=== PATIENT | female | born 1990 | race Two or more races ===

== ENCOUNTER 2019-03-30 13:44 | Observation (INO) | payer SELFPAY ==
[2019-03-30 14:46] LABS: AMNIO PT NEGATIVE
[2019-03-30] MEDS ORDERED: IV RINGERS,LACTATED 1000ML 1,000 ML IV PRN (15:30)
[2019-03-30] MEDS ORDERED: hydrOXYzine 25 MG TABLET PO PRN (15:30)
[2019-03-30 15:55] LABS: BILIRUBIN,URINE NEGATIVE (NEG); CLARITY,URINE CLEAR; COLOR,URINE YELLOW; NITRITE,URINE POSITIVE (NEG); PROTEIN,URINE NEGATIVE (NEG-TRACE); UROBILINOGEN,URINE 0.2 mg/dL (0.2 mg/dL)
[2019-03-30 16:08] LABS: BACTERIA,URINE MANY /HPF (0-FEW); RBC,URINE 0 /HPF (0-2); SQUAMOUS EPITHELIAL CELL,UR OCC /LPF
== END 2019-03-30 16:20 | disposition home or self-care (01) ==
LOC: 3 SO LND 13:44
PROVIDERS: ADMIT Specialist; ATTEND Specialist
DX: O62.9 Abnormality of forces of labor, unspecified (principal); Z3A.35 35 weeks gestation of pregnancy
CPT/HCPCS: 36415; 81001; 84112; 87086; 87186; G0378; G0379

== ENCOUNTER 2019-05-31 17:11 | Emergency (ER) | payer SELFPAY ==
[~2019-05-31 17:11] MED LIST: PREN-6 PO
[2019-05-31] MEDS ORDERED: DICYCLOMINE HCL 10 MG CAPSULE PO ONE (19:00)
[2019-05-31] MEDS ORDERED: ONDANSETRON PF 4 MG/2 ML VIAL. IVP ONE (19:00)
[2019-05-31] MEDS ORDERED: IV NORMAL SALINE 1000ML BAG 1,000 ML IV ONE (19:00)
[2019-05-31 19:07] LABS: BILIRUBIN,URINE NEGATIVE (NEG); CLARITY,URINE CLEAR; COLOR,URINE YELLOW; NITRITE,URINE NEGATIVE (NEG); PH,URINE 5.5; PROTEIN,URINE NEGATIVE (NEG-TRACE); UROBILINOGEN,URINE 0.2 mg/dL (0.2 mg/dL)
[2019-05-31 19:15] LABS: SQUAMOUS EPITHELIAL CELL,UR MOD /LPF
[2019-05-31 19:16] LABS: BASO % 0 % (0-3); EOS % 0 % (0-3); HEMATOCRIT 33.2 % (36.0-47.0); HEMOGLOBIN 10.7 g/dL (12.0-15.5); LYMPH # 1.2 x10^3/uL (1.0-4.8); LYMPH % 14 % (24-48); MEAN CORPUSCULAR HEMOGLOBIN 24 pg (25-35); MEAN CORPUSCULAR HGB CONC 32 g/dL (31-37); MEAN CORPUSCULAR VOLUME 73 fL (79-100); MONO # 0.4 x10^3/uL (0.0-1.1); MONO % 5 % (0-9); NEUT # 7.2 x10^3/uL (1.8-7.7); NEUT % 81 % (31-73); PLATELET COUNT 283 x10^3/uL (140-400); RED BLOOD COUNT 4.57 x10^6/uL (3.50-5.40); RED CELL DISTRIBUTION WIDTH 18.8 % (11.5-14.5); WHITE BLOOD COUNT 8.9 x10^3/uL (4.0-11.0)
[2019-05-31 19:16] LABS: BACTERIA,URINE FEW /HPF (0-FEW); BARBITURATES NEG (NEG); BENZODIAZEPINES NEG (NEG); CANNABINOIDS NEG (NEG); COCAINE NEG (NEG); METHADONE NEG (NEG); OPIATES NEG (NEG); PHENCYCLIDINE NEG (NEG); RBC,URINE 0 /HPF (0-2)
[2019-05-31 19:18] LABS: AMPHETAMINE/METHAMPHETAMINE NEG (NEG)
[2019-05-31 19:28] LABS: CALCIUM 9.3 mg/dL (8.5-10.1); CREATININE 0.7 mg/dL (0.6-1.0); GFR 99.6
[2019-05-31] MEDS ORDERED: ACETAMINOPHEN 500 MG TABLET PO ONE (19:30)
[2019-05-31] MEDS ORDERED: IOHEXOL 300 MG/ML 100ML VIAL. IV ONE (19:30)
[2019-05-31 19:33] LABS: ALBUMIN 3.8 g/dL (3.4-5.0); TOTAL BILIRUBIN 0.3 mg/dL (0.2-1.0); TOTAL PROTEIN 7.7 g/dL (6.4-8.2)
[2019-05-31] MEDS ORDERED: CONTRAST GIVEN. MC PRN (19:45)
--- NOTE | 2019-05-31 20:13 | RAD ---
Study: CT abdomen/pelvis with intravenous contrast Indication: Abdominal pain. Recent section. Comparison: None. Technique: Helical CT imaging performed of the abdomen and pelvis after the intravenous administration of 75 cc Omnipaque 300 contrast. Sagittal and coronal reformats were obtained. One or more of the following individualized dose reduction techniques were utilized for this examination: 1. Automated exposure control 2. Adjustment of the mA and/or kV according to patient size 3. Use of iterative reconstruction technique. Findings: Unremarkable lower lungs and visualized heart. Hepatic steatosis. Unremarkable gallbladder, pancreas, spleen and adrenal glands. Unremarkable kidneys. Asymmetric prominence of portions of the left ureter such as approaching the uterus on image 52 series 2 though no obstructing process is seen. A focus of mineralization at the left of the urinary bladder at its base, image 73 series 2, is favored a phlebolith. Mild fatty stranding along the anterior wall of the urinary bladder is favored reactive from section. The endometrium is prominent though this is not atypical given patient age. Outward bowing of the endometrium as seen on sagittal image 32 series 5, likely a manifestation of section. The ovaries are within normal limits for patient age. There is likely a right ovarian cyst on image 60 measuring up to 2 cm and the left ovarian cyst on image 55 measuring 3.5 cm. Mild short segment colonic wall thickening/enhancement at the proximal sigmoid/distal descending aspect without surrounding inflammatory changes. Fluid within the more proximal colon as can be seen with a diarrheal state. Mild edematous wall thickening of the cecum. The appendix is within normal limits. Mild thickening of the ileal wall. More proximally the small bowel is unremarkable. Radiodense ingested foci within the gastric fundus. Unremarkable vasculature. Mild fatty stranding along the ventral pelvic midline in the setting of section. No fluid collection. Small amount of free fluid within the pelvis. Small fat-containing paraumbilical hernia, image 46 series 2. No complicating features. No acute osseous abnormality. Impression: 1. Changes involving the ventral pelvic midline in keeping with relatively recent section. No fluid collection is seen at this location. A small amount of free pelvic fluid is nonspecific but may be physiologic given patient age. 2. Thickened endometrium and presumed left larger than right ovarian cysts but these findings are not atypical given patient age. 3. Fluid within portions of the colon compatible with a diarrheal state. Mild wall thickening of the cecum and ileum as well as mild wall thickening centered at the junction of the descending and sigmoid colon. A mild colitis/enteritis to account for this appearance is a consideration. A reactive etiology from the section seems somewhat less likely as the surgery was reportedly a month prior. No bowel obstruction or perforation. 4. Hepatic steatosis. Electronically signed by: NANCY GORDON MD (05/31/2019 8:10 PM) [id number]
[2019-05-31] MEDS ORDERED: ONDA4TAB12 PO (21:46)
--- NOTE | 2019-05-31 21:46 | PHYS DOC ---
Past Medical History Alcohol Use: None Adult General Chief Complaint Chief Complaint: ABDOMINAL PAIN HPI HPI Patient is a 28 year old female who presents to the ED today with nausea vom iting and diarrhea as well as abdominal cramping that began yesterday. Patient denies any fever. Denies any hematemesis or melena. Patient is Ukrainian-speaking and interpretation is provided by one of the RNs. She reports she had a C- section 1 month ago and her tubes are tied. Review of Systems Review of Systems Constitutional: Denies fever or chills [] Eyes: Denies change in visual acuity, redness, or eye pain [] HENT: Denies nasal congestion or sore throat [] Respiratory: Denies cough or shortness of breath [] Cardiovascular: No additional information not addressed in HPI [] GI: Reports abdominal pain, nausea vomiting and diarrhea : Denies dysuria or hematuria [] Musculoskeletal: Denies back pain or joint pain [] Integument: Denies rash or skin lesions [] Neurologic: Denies headache, focal weakness or sensory changes [] All other systems were reviewed and found to be within normal limits, except as documented in this note. Current Medications Current Medications Current Medications Medications (Trade) Dose Ordered Sig/Carlton Start Time Stop Time Status Last Admin Dose Admin Acetaminophen (Tylenol) 1,000 mg 1X ONCE 05/31/19 19:30 05/31/19 19:43 DC 05/31/19 20:01 1,000 MG Dicyclomine HCl (Bentyl) 20 mg 1X ONCE 05/31/19 19:00 05/31/19 19:02 DC 05/31/19 19:23 20 MG Info (CONTRAST GIVEN -- Rx MONITORING) 1 each PRN DAILY PRN 05/31/19 19:45 06/02/19 19:44 Iohexol (Omnipaque 300 Mg/ml) 75 ml 1X ONCE 05/31/19 19:30 05/31/19 19:43 DC 05/31/19 19:49 75 ML Ondansetron HCl (Zofran) 4 mg 1X ONCE 05/31/19 19:00 05/31/19 19:02 DC 05/31/19 19:23 4 MG Sodium Chloride 1,000 ml @ 1,000 mls/hr 1X ONCE 05/31/19 19:00 05/31/19 19:59 DC 05/31/19 19:22 1,000 MLS/HR Allergies Allergies Allergies Coded Allergies Type Severity Reaction Last Updated Verified No Known Drug Allergies 03/30/19 No Physical Exam Physical Exam Constitutional: Well developed, well nourished, no acute distress, non-toxic appearance. [] HENT: Normocephalic, atraumatic, bilateral external ears normal, oropharynx moist, no oral exudates, nose normal. [] Eyes: PERRLA, EOMI, conjunctiva normal, no discharge. [] Neck: Normal range of motion, no tenderness, supple, no stridor. [] Cardiovascular:Heart rate regular rhythm, no murmur [] Lungs & Thorax: Bilateral breath sounds clear to auscultation [] Abdomen: Bowel sounds normal, soft, no tenderness, no masses, no pulsatile masses. Well-healed scar noted on the bikini region Skin: Warm, dry, no erythema, no rash. [] Back: No tenderness, no CVA tenderness. [] Extremities: No tenderness, no cyanosis, no clubbing, ROM intact, no edema. [] Neurologic: Alert and oriented X 3, normal motor function, normal sensory function, no focal deficits noted. [] Psychologic: Affect normal, judgement normal, mood normal. [] Current Patient Data Vital Signs Vital Signs Date Time Temp Pulse Resp B/P (MAP) Pulse Ox O2 Delivery O2 Flow Rate FiO2 05/31/19 17:44 98.1 72 16 119/74 (89) 99 Room Air 98.1 Lab Values Laboratory Tests Test 05/31/19 18:45 05/31/19 19:10 Urine Collection Type Unknown Urine Color Yellow Urine Clarity Clear Urine pH 5.5 Urine Specific [place] 1.010 Urine Protein Negative mg/dL (NEG-TRACE) Urine Glucose (UA) Negative mg/dL (NEG) Urine Ketones (Stick) Negative mg/dL (NEG) Urine Blood Negative (NEG) Urine Nitrite Negative (NEG) Urine Bilirubin Negative (NEG) Urine Urobilinogen Dipstick 0.2 mg/dL (0.2 mg/dL) Urine Leukocyte Esterase Trace (NEG) Urine RBC 0 /HPF (0-2) Urine WBC 1-4 /HPF (0-4) Urine Squamous Epithelial Cells Mod /LPF Urine Bacteria Few /HPF (0-FEW) POC Urine HCG, Qualitative Hcg negative (Negative) Urine Opiates Screen Neg (NEG) Urine Methadone Screen Neg (NEG) Urine Barbiturates Neg (NEG) Urine Phencyclidine Screen Neg (NEG) Urine Amphetamine/Methamphetamine Neg (NEG) Urine Benzodiazepines Screen Neg (NEG) Urine Cocaine Screen Neg (NEG) Urine Cannabinoids Screen Neg (NEG) Urine Ethyl Alcohol Neg (NEG) White Blood Count 8.9 x10^3/uL (4.0-11.0) Red Blood Count 4.57 x10^6/uL (3.50-5.40) Hemoglobin 10.7 g/dL (12.0-15.5) L Hematocrit 33.2 % (36.0-47.0) L Mean Corpuscular Volume 73 fL (79-100) L Mean Corpuscular Hemoglobin 24 pg (25-35) L Mean Corpuscular Hemoglobin Concent 32 g/dL (31-37) Red Cell Distribution Width 18.8 % (11.5-14.5) H Platelet Count 283 x10^3/uL (140-400) Neutrophils (%) (Auto) 81 % (31-73) H Lymphocytes (%) (Auto) 14 % (24-48) L Monocytes (%) (Auto) 5 % (0-9) Eosinophils (%) (Auto) 0 % (0-3) Basophils (%) (Auto) 0 % (0-3) Neutrophils # (Auto) 7.2 x10^3/uL (1.8-7.7) Lymphocytes # (Auto) 1.2 x10^3/uL (1.0-4.8) Monocytes # (Auto) 0.4 x10^3/uL (0.0-1.1) Eosinophils # (Auto) 0.0 x10^3/uL (0.0-0.7) Basophils # (Auto) 0.0 x10^3/uL (0.0-0.2) Sodium Level 138 mmol/L (136-145) Potassium Level 4.0 mmol/L (3.5-5.1) Chloride Level 102 mmol/L (98-107) Carbon Dioxide Level 26 mmol/L (21-32) Anion Gap 10 (6-14) Blood Urea Nitrogen 10 mg/dL (7-20) Creatinine 0.7 mg/dL (0.6-1.0) Estimated GFR (Cockcroft-Gault) 99.6 BUN/Creatinine Ratio 14 (6-20) Glucose Level 93 mg/dL (70-99) Calcium Level 9.3 mg/dL (8.5-10.1) Total Bilirubin 0.3 mg/dL (0.2-1.0) Aspartate Amino Transferase (AST) 23 U/L (15-37) Alanine Aminotransferase (ALT) 43 U/L (14-59) Alkaline Phosphatase 90 U/L (46-116) Total Protein 7.7 g/dL (6.4-8.2) Albumin 3.8 g/dL (3.4-5.0) Albumin/Globulin Ratio 1.0 (1.0-1.7) Lipase 138 U/L (73-393) Ethyl Alcohol Level < 10 mg/dL (0-10) Laboratory Tests 05/31/19 19:10 Laboratory Tests 05/31/19 19:10 EKG EKG [] Radiology/Procedures Radiology/Procedures [] Course & Med Decision Making Course & Med Decision Making Pertinent Labs and Imaging studies reviewed. (See chart for details) This is a 28-year-old female patient presenting to the ED today with nausea vomiting diarrhea and abdominal cramping since yesterday. Labs are negative for any acute findings. CAT scan of the abdomen and pelvic is negative. Discharged to home. Provided return precautions and discharged in stable condition Dragon Disclaimer Dragon Disclaimer This electronic medical record was generated, in whole or in part, using a voice recognition dictation system. Departure Departure Impression: Primary Impression: Nausea and vomiting Additional Impressions: Diarrhea Abdominal pain Disposition: HOME, SELF-CARE Condition: STABLE Referrals: TITUS RODRIGUEZ Jr, MD (PCP) DWIGHT ABBOTT MD Follow-up with your own doctor in 1-2 weeks Patient Instructions: Diarrhea, [id number], Nausea and Vomiting Additional Instructions: You were evaluated in the emergency room for abdominal pain with nausea, vomiting and diarrhea. Your symptoms are likely viral. Push fluids, maintain good hand hygiene. Take the prescribed medication as needed for nausea vomiting. Follow-up with your doctor in the next 7 days. Come back to the ER anytime symptoms worsen. Scripts Ondansetron (ONDANSETRON ODT) 4 Mg Tab.rapdis 1 TAB PO PRN Q6-8HRS, #16 TAB Prov: ARIANNE HANLEY [employer] 05/31/19 Problem Qualifiers Primary Impression: Nausea and vomiting Vomiting type: unspecified Vomiting Intractability: unspecified Qualified Codes: R11.2 - Nausea with vomiting, unspecified Additional Impressions: Diarrhea Diarrhea type: unspecified type Qualified Codes: R19.7 - Diarrhea, unspecified Abdominal pain Abdominal location: generalized Qualified Codes: R10.84 - Generalized abdominal pain ARIANNE HANLEY [employer] May 31, 2019 21:46
[2019-05-31 22:58] VITALS: BP 119/74
== END 2019-05-31 23:13 | disposition home or self-care (01) ==
LOC: ER 17:11
DX: R11.2 Nausea with vomiting, unspecified (principal); R19.7 Diarrhea, unspecified; R10.84 Generalized abdominal pain; Z79.899 Other long term (current) drug therapy
CPT/HCPCS: 36415; 74177; 80053; 80307; 81001; 81025; 83690; 85025; 96361; 96374; 99285; G0480; J2405; J7030; Q9967